=== PATIENT | male | born 1995 | race Caucasian/White ===

== ENCOUNTER 2018-03-01 07:44 | Emergency (ER) | payer BC ==
--- NOTE | 2018-03-01 07:56 | PDOC ---
History of Present Illness - General Chief Complaint: Penile Drainage Stated Complaint: PENILE PAIN Time Seen by Provider: 03/01/18 07:56 Past History - Past Medical History Allergies/Adverse Reactions: Allergies Allergy/AdvReac Type Severity Reaction Status Date / Time No Known Allergies Allergy Verified 03/01/18 07:49 COPD: No CHF: No Hypercholesterolemia: No Psychiatric Problems: No Other medical history: HIV - Surgical History Appendectomy: No Gastric Stapling: No Lung Surgery: No - Immunization History Td Vaccination: No TDAP Vaccination: No Immunization Up to Date: No - Suicide/Smoking/Psychosocial Hx Smoking History: Current every day smoker Have you smoked in the past 12 months: No Information on smoking cessation initiated: No Hx Alcohol Use: No Drug/Substance Use Hx: No *Physical Exam - Vital Signs Last Vital Signs Temp Pulse Resp BP Pulse Ox 98.3 F 84 18 115/82 99 03/01/18 07:50 03/01/18 07:50 03/01/18 07:50 03/01/18 07:50 03/01/18 07:50 Moderate Sedation - Procedure Monitoring Vital Signs: Procedure Monitoring Vital Signs Temperature 98.3 F 03/01/18 07:50 Pulse Rate 84 03/01/18 07:50 Respiratory Rate 18 03/01/18 07:50 Blood Pressure 115/82 03/01/18 07:50 O2 Sat by Pulse Oximetry (%) 99 03/01/18 07:50 *DC/Admit/Observation/Transfer - Discharge Dispostion Condition at time of disposition: Stable - Referrals - Patient Instructions - Post Discharge Activity
[2018-03-01 07:58] VITALS: BP 115/82; PULSE 84; TEMP 98.3; BMI 33.6
--- NOTE | 2018-03-01 09:10 | PDOC ---
History of Present Illness - General Chief Complaint: Penile Drainage Stated Complaint: PENILE PAIN Time Seen by Provider: 03/01/18 07:56 History Source: Patient Exam Limitations: Clinical Condition - History of Present Illness Initial Comments: 03/01/18 09:15 Patient with HIV positive present with complaint of bleeding from the tip of the penis after having sex overnight. Patient denies female partner having any piercing on the vagina area. Patient does not know what causes the bleeding. Patient denies any other symptoms. Timing/Duration: 1-3 hours Past History - Past Medical History Allergies/Adverse Reactions: Allergies Allergy/AdvReac Type Severity Reaction Status Date / Time No Known Allergies Allergy Verified 03/01/18 07:49 Home Medications: Ambulatory Orders Cephalexin Monohydrate [Keflex -] 500 mg PO BID 7 Days #14 capsule 03/01/18 COPD: No CHF: No Hypercholesterolemia: No Psychiatric Problems: No Other medical history: HIV - Surgical History Appendectomy: No Gastric Stapling: No Lung Surgery: No - Immunization History Td Vaccination: No TDAP Vaccination: No Immunization Up to Date: No - Suicide/Smoking/Psychosocial Hx Smoking History: Current every day smoker Have you smoked in the past 12 months: No Information on smoking cessation initiated: No Hx Alcohol Use: No Drug/Substance Use Hx: No Review of Systems - Review of Systems Able to Perform ROS?: Yes Is the patient limited Lithuanian proficient: No Constitutional: No: Fever HEENTM: No: Symptoms Reported Respiratory: No: Symptoms reported Cardiac (ROS): No: Symptoms Reported ABD/GI: No: Symptoms Reported, Nausea, Vomiting : Yes: Other (laceration and bleeding to tip of penis). No: Frequency, Flank Pain, Incontinence, Urgency, Testicular Mass, Testicular Swelling, Lesions, Testicular Pain *Physical Exam - Vital Signs Last Vital Signs Temp Pulse Resp BP Pulse Ox 98.3 F 84 18 115/82 99 03/01/18 07:50 03/01/18 07:50 03/01/18 07:50 03/01/18 07:50 03/01/18 07:50 - Physical Exam General Appearance: Yes: Nourished, Appropriately Dressed. No: Apparent Distress HEENT: positive: Normal ENT Inspection Neck: positive: Supple Respiratory/Chest: negative: Respiratory Distress, Accessory Muscle Use Cardiovascular: positive: Regular Rhythm, Regular Rate Gastrointestinal/Abdominal: positive: Flat, Soft. negative: Tender Male Genitalia: positive: other (small 1mm linear laceration to frenulum of gland of penis with minimal bleeding). negative: discharge, testicular tenderness, testicular mass, epididymus tender Moderate Sedation - Procedure Monitoring Vital Signs: Procedure Monitoring Vital Signs Temperature 98.3 F 03/01/18 07:50 Pulse Rate 84 03/01/18 07:50 Respiratory Rate 18 03/01/18 07:50 Blood Pressure 115/82 03/01/18 07:50 O2 Sat by Pulse Oximetry (%) 99 03/01/18 07:50 Procedures - Laceration/Wound Repair Posterior Penis Wound Length: to 2.5 cm (1) Wound Explored: clean, no foreign body present Wound's Depth, Shape: superficial Irrigated w/ Saline: Yes Betadine Prep: Yes Wound Repaired With: Steri-strips, Dermabond Sterile Dressing Applied: Yes Splint Applied: No Sling Applied: No Progress: 03/01/18 09:20 1cm superficial laceration to frenulum of gland of penis cleaned with betadine. wound closed with dermabond. steri-strips applied wound. Patient tolerated procedure well Medical Decision Making - Medical Decision Making 03/01/18 09:22 Patient with HIV positive present with complaint of bleeding from the tip of the penis after having sex overnight. Patient denies female partner having any piercing on the vagina area. exam significant for 1cm laceration to frenulum of penis with minimal bleeding. wound cleaned and closed with dermabond and steri- strips. Pt discharged on Keflex with urology follow-up *DC/Admit/Observation/Transfer Diagnosis at time of Disposition: Penile laceration Qualifiers: Encounter type: initial encounter Qualified Code(s): S31.21XA - Laceration without foreign body of penis, initial encounter - Discharge Dispostion Disposition: HOME Condition at time of disposition: Stable Decision to Admit order: No - Prescriptions Prescriptions: Cephalexin Monohydrate [Keflex -] 500 mg PO BID 7 Days #14 capsule - Referrals Referrals: Ryan Valentino MD [Staff Physician] - - Patient Instructions Printed Discharge Instructions: How to Care for a Laceration After Repair, DI for Laceration Repair With Dermabond Additional Instructions: Take medications as prescribed. Follow-up referred urology in next 5 days for reassessment. Apply Neosporin or bacitracin to wound twice a day until healed. - Post Discharge Activity
== END 2018-03-01 09:15 | disposition home or self-care (01) ==
LOC: JER 07:44 → JERFT 07:44
PROC: 0HQ9XZZ Repair Perineum Skin, External Approach (ICD-10-PCS; principal; 2018-03-01)
DX: S31.21XA Laceration without foreign body of penis, initial encounter (principal); X58.XXXA Exposure to other specified factors, initial encounter; Y93.89 Activity, other specified; Y92.89 Other specified places as the place of occurrence of the external cause; Z21 Asymptomatic human immunodeficiency virus [HIV] infection status; F17.210 Nicotine dependence, cigarettes, uncomplicated
CPT/HCPCS: 99281-25